=== PATIENT | female | born 1955 | race Caucasian/White ===

== ENCOUNTER 2016-03-21 14:20 | Emergency (ER) | payer MEDICARE, MEDICAID ==
[~2016-03-21] VITALS: Ht 157.5 cm; Wt 49.9 kg
[~2016-03-21 14:20] MED LIST: ADVAIR 250/5028 PUFF IN; ALBUTEROL-200 PUFFS/ IH; ALPRAZOLAM0.5 MG PO; ASPIRIN 325MG325 MG PO; ATIVAN1 MG PO; AUGMENTIN1 TA2 PO; BACTRIM DS 8001 TA1 PO; BACTRIM DS 8001 TAB PO; BAYER ASPIRIN C81 MG PO; BUSPIRONE 5MG TA5 MG PO; CEPHALEXIN500 MG PO; CLONAZEPAM 1MG T1 MG PO; COMBIVENT RESPI1 SPR IH; COMBIVENT1 AR1 IH; DALIRESP500 MCG PO; DARVOCET-N 1001 EACH PO; DEPAKOTE 250MG250 MG PO; DEXAMETHASONE 4M4 MG PO; DIFLUCAN 100MG100 MG PO; DOXYCYCLINE MO100 MG PO; DUONEB 3 MG/3 ML3 ML IH; FERROUS SULFAT325 M2 PO; FLEXERIL10 M1 PO; FLEXERIL10 MG PO; FOLIC ACID 1MG T1 MG PO; GABAPENTIN300 MG PO; HYDROCODONE 7.51 TAB PO; HYDROCODONE-APA1 TA1 PO; HYDROCODONE/ACE1 TA5 PO; HYDROCODONE1 TABLET PO; IBUPROFEN800 MG PO; KEFLEX 500MG.500 MG PO; KEPPRA 500 MG500 MG PO; KLONOPIN1 M2 PO; LASIX 40MG. TAB40 MG PO; LEVAQUIN500 MG PO; LEVOFLOXACIN 5500 MG PO; LIPITOR20 MG PO; LIPITOR40 MG PO; LISINOPRIL10 MG PO; LORTAB 5/500 501 TAB PO; LORTAB 7.5/3251 TAB PO; MEDROL 4MG. DOSE4 MG PO; MUCINEX FAST-M177 M3 PO; MUPIROCIN21 TP; NEURONTIN 100100 MG PO; NICODERM C21 MG/24 H TD; NICOTINE PATCH;21 MG TD; OMEPRAZOLE MAGN20 MG PO; ONDANSETRON HYDR8 M1 PO; ONDANSETRON8 M1 PO; POTASSIUM CHLO20 ME2 PO; PREDNISONE 20MG20 MG PO; PREDNISONE50 MG PO; PRILOSEC40 MG PO; PROAIR HFA0.09 MG/AC IH; PROVENTIL0.09 MG/A1 IH; PROVENTIL0.09 MG/AC IH; ROBITUSSIN DM 105 ML PO; SKELAXIN 800MG800 MG PO; SPIRIVA HA1 PUFF/INH IH; SUBOXONE 8 MG-21 FIL SL; SYMBICORT1 AE1 IH; TESSALON PERLE100 MG PO; TRAMADOL 50MG T50 M1 PO; TRAMADOL 50MG T50 MG PO; TRAZODONE 50MG50 MG PO; TRIMETHOPRIM W/1 TAB PO; ULTRAM 50 MG TA50 MG PO; VALPROIC ACID250 MG PO; VIBRAMYCIN HYC100 MG PO; VICODIN 5/500 T1 TAB PO; VICODIN 7.5/501 EACH PO; VOLTAREN75 MG PO; ZANTAC 150150 MG PO; ZIPRASIDONE HCL20 MG PO; ZITHROMAX Z PA250 MG PO
[2016-03-21] MEDS ORDERED: POTASSIUM CHLO20 ME2 PO (14:43)
[2016-03-21] MEDS ORDERED: SYMBICORT1 AE1 IH (14:44)
[2016-03-21] MEDS ORDERED: IPRATROPIUM 2.2.5 ML INH (14:45)
[2016-03-21] MEDS ORDERED: GABAPENTIN800 MG PO (14:45)
[2016-03-21] MEDS ORDERED: BIOTIN1 MG PO (14:46)
[2016-03-21] MEDS ORDERED: COD LIVER OIL1 CAP PO (14:46)
--- NOTE | 2016-03-21 14:57 | Urgent Treatment Center Report ---
History of Present Issue Date/Time Seen by Provider 03/21/16 5749 Visit Reason Pt arrived:Walked Presenting Problem:PT REPORTS CHEST CONGESTION AND FEELING MORE SOA THAN NORMAL. STATES SPUTUM IS DARKER THAN IT USUALLY IS. STATES COUGH Location if Accident: Onset of symptoms date/time:03/19/16/ or onset unknown for:MEDICAL HX UNKNOWN Have you (or family members/close friends) recently traveled outside the [place]? N If Yes, where/when: Have you had exposure to infectious disease within the past month? TB? Other? Specify: c/o "I think I have pneumonia". Increasing productive cough, darker sputum, chest congestion and SOA starting 2 days ago. Fractured right "middle" rib 2-3 weeks ago coughing. Still painful at times. Finished narcotic this morning. Hoarse but reports "I am still recovering from the test where they cleaned out my carotid. that is not related to this." Hx of lung CA 3-4 years ago "I am not sure when or exactly where". Treated w/ "focused radiation" only. Denies lobectomy or chemo. Also reports hx of COPD. Always has a productive cough and mild SOA. Still smoking but down from 2ppd to 1/2ppd. Had two remaining steroids at home from a previous illness. Took those. Hasn't taken or tried anything other than her COPD medications and inhalers. Not sure what they are. Reporting "that one" seems to help these symptoms. Gave list of meds to triage nurse. Denies fever, bodyaches, chills. Source patient Exam Limitations no limitations ALLERGIES Coded Allergies: No Known Allergies (12/29/15) Home Medications Active Scripts HYDROCODONE 5MG/APAP 325MG (Hydrocodon-Acetaminophen 5-325) 1 TAB PO Q4HP PRN pain #20 TAB Prov: 03/04/16 Reported Medications Ferrous Sulfate (Ferrous Sulfate 325MG) 325 MG PO BID OMEPRAZOLE MAGNESIUM (Omeprazole Magnesium) 20 MG PO DAILY Atorvastatin Calcium (Atorvastatin) 20 MG PO DAILY ALBUTEROL/IPRATROPIUM (Combivent Respimat Inhal [place]) 1 PUFF IH BID #4 POTASSIUM CHL (Potassium Chloride) 20 MEQ PO DAILY BUDESONIDE/FORMOTEROL FUMARATE (Symbicort 160-4.5 Mcg Inhaler) 1 PUFF IH BID Ipratropium [place] (Ipratropium 0.5MG Neb Soln) 0.5 MG INH PRN PRN COPD Gabapentin (Gabapentin 800MG) 800 MG PO Q8 #120 Cod Liver Oil 1 CAP PO DAILY Biotin 1 MG PO DAILY History Medical History General CAD? No Angina: No [place]: No Hypertension? No Hyperlipidemia? No CHF? No DVT? No PE? No COPD? Yes Asthma? Yes Anemia? Yes GERD? No Gastric ulcers? No GI Bleed? No Hernia? No Thyroid Problems? No Hypothyroidism? No CVA? Yes Seizures? Yes Diabetes? No Insulin Dependent: No Insulin Pump: No Home FSBS? No Renal Insuffiency? No UTI? Yes Stones? No BPH? No GB Disease: No Nephritic Syndrome? No Asplenia? No Hepatitis? No Sickle Cell Disease? No Arthritis? No Migraines? No Cataracts? No Glaucoma? No MRSA? No HIV? No TB? No Anxiety? No Depression? No Cancer? Yes Site: RIGHT LUNG More? No Immunization HX DT/Tetanus Unknown Flu REFUSES Pneumonia Unknown Surgical Hx Previous Surgery?Y HYSTERECTOMY LUNG BIOPSY Family History Family HX Diabetes No CAD No Hypertension No Hyperlipidemia No Cancer No TB No Social History Smoking Hx Smoker: Current Every Day Smoker Tobacco: Yes Type Cigarettes Packs/day 1 1/2 - 2 Packs Alcohol Alcohol: No Review of Systems All Other Systems Reviewed and Negative Constitutional see HPI Eyes denies no symptoms reported ENT nose discharge (scant, clear). denies: ear pain, nose congestion, throat pain. Respiratory see HPI, denies stridor, denies wheezing Cardiovascular chest pain (right flank, no new, rib fx) Gastrointestinal denies no symptoms reported Psychiatric/Neurological denies no symptoms reported Physical Exam Vital Signs Vital Signs Date Time Temp Pulse Resp B/P Pulse O2 O2 Flow FiO2 Ox Delivery Rate 03/21 1441 97.6 87 20 128/82 95 03/21 1424 97.6 87 20 128/82 95 General Appearance no apparent distress, In conversation, mild SOA immediately noticed. Hoarse voice Ear, Nose, Throat normal ENT inspection Neck non-tender, supple Respiratory Status No: respiratory distress, non productive cough. Lung Sounds anterior: lungs clear. posterior: lungs clear. bilateral: lungs clear. Cardiovascular regular rate/rhythm, no murmur Neurologic alert Skin intact, normal color, warm/dry Lymphatic no adenopathy (cervical) Medical Decision Making LABS/Meds/Orders Pt receiving controlled substance in ED? No Results/Orders Orders Procedure Date/time Status CHEST(2 VIEWS-NOT PORTABLE) 03/21 1457 Active XRAY/CT/US XRAY/CT/US XRAY chest XR interpretation by discussed w/radiologist (read report) Xray Results no infiltrates, unchanged, chronic finding Departure Departure Time of Disposition 1527 Disposition DC Home or Self Care(routine) Clinical Impression Primary Impression: COPD exacerbation Condition STABLE Referrals NO REFERRAL PCP immediately for new or worsening symptoms or no noticeable improvement over the next 48 hours Patient Instructions DI for Chronic Obstructive Pulmonary Disease Additional Instructions Increase fluids Mucinex prescription or if too expensive, 400mg tablets OTC (generic) and take 2 tabs 3x/day Start antibx and steroid today Use nebs/inhalers. enc use every 4-6 hours today and tomorrow then as needed for SOA, wheezing, chest tightness smoking cessation STRONGLY encouraged Discharge Counseling Counseled pt/family regarding diagnosis, test results, medications/RX, home care, follow up needs Prescriptions Current Visit Scripts Azithromycin (Zithromycin (Z-ARUN) 250MG Tab) 250 MG PO DAILY #6 TAB TAKE TWO (2) TABLETS ON DAY 1, THEN ONE (1) TABLET DAY #2 THRU #5 Methylprednisolone (Medrol Dose Arun) 4 MG PO UD #1 ARUN TAKE DIRECTED ON PACKAGING Guaifenesin (Mucinex) 1,200 MG PO BID #20 TAB if too expensive, show pt 400mg tabs (2 tabs TID) at 4620
--- NOTE | 2016-03-21 15:17 | RADIOLOGY REPORT PS360 ---
CHEST(2 VIEWS-NOT PORTABLE) HISTORY: fx right rib 2-3 weeks ago, now cough, SOA ORDERING PHYSICIAN: RICK MCCULLOUGH APRN PATIENT AGE: 60 years COMPARISON: 02/13/2016 FINDINGS: The cardiomediastinal silhouette and pulmonary vascularity are within normal limits. Fibrotic changes once again noted in the right midlung as previously described with mild prominence of the right hilum. Previously noted rib fractures are not readily apparent on the radiograph of the chest. There is some mild pleural thickening in the right midlung laterally. No evidence of pneumothorax. The left lung is clear. There is mild pectus excavatum deformity. IMPRESSION: 1. Mild pleural thickening right midlung laterally. No evidence of pneumothorax. 2. No change right midlung atelectasis or fibrosis with mild prominence of the right hilum.
[2016-03-21] MEDS ORDERED: ZITHROMAX Z PA250 MG PO (15:31)
[2016-03-21] MEDS ORDERED: MUCINEX1200 MG PO (15:32)
[2016-03-21] MEDS ORDERED: MEDROL 4MG. DOSE4 MG PO (15:32)
[2016-03-21 15:40] VITALS: BP 128/82
== END 2016-03-21 15:41 | disposition home or self-care (01) ==
LOC: UTC 14:20 → ER 14:20 → UTC 14:35 → ER 14:35 → UTC 15:41
DX: J44.1 Chronic obstructive pulmonary disease with (acute) exacerbation (principal); Z72.0 Tobacco use

== ENCOUNTER 2016-04-16 11:17 | Emergency (ER) | payer MEDICARE, MEDICAID ==
[~2016-04-16] VITALS: Ht 157.5 cm; Wt 54.4 kg
[~2016-04-16 11:17] MED LIST changes: +BIOTIN1 MG PO; +COD LIVER OIL1 CAP PO; +GABAPENTIN800 MG PO; +IPRATROPIUM 2.2.5 ML INH; +MUCINEX1200 MG PO
--- NOTE | 2016-04-16 11:29 | Emergency Room Report ---
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 N Clinical Suspician of Infection? N Mental Status: 1 - Regular (Normal Baseline) Sepsis Risk:Low Sepsis Risk Have you (or family members/close friends) recently traveled outside the [place]? N If Yes, where/when: Have you had exposure to infectious disease within the past month? TB? Other? Specify: Comment The patient requests x-rays of her RIGHT ribs. She says she broke ribs on the RIGHT side a few weeks ago and they have begun hurting worse again a week ago. She says she has been picking up children and other various physical activities. She has pain with a deep breath. She was initially seen here for her fractured ribs, but has had no follow-up. She denies any other new symptoms. ALLERGIES Coded Allergies: No Known Allergies (04/16/16) Home Medications Active Scripts HYDROCODONE 5MG/APAP 325MG (Hydrocodon-Acetaminophen 5-325) 1 TAB PO Q4HP PRN pain #20 TAB Prov: 03/04/16 Azithromycin (Zithromycin (Z-ARUN) 250MG Tab) 250 MG PO DAILY #6 TAB Prov: 03/21/16 Methylprednisolone (Medrol Dose Arun) 4 MG PO UD #1 ARNU Prov: 03/21/16 Guaifenesin (Mucinex) 1,200 MG PO BID #20 TAB Prov: 03/21/16 Reported Medications Ferrous Sulfate (Ferrous Sulfate 325MG) 325 MG PO BID OMEPRAZOLE MAGNESIUM (Omeprazole Magnesium) 20 MG PO DAILY Atorvastatin Calcium (Atorvastatin) 20 MG PO DAILY ALBUTEROL/IPRATROPIUM (Combivent Respimat Inhal [place]) 1 PUFF IH BID #4 POTASSIUM CHL (Potassium Chloride) 20 MEQ PO DAILY BUDESONIDE/FORMOTEROL FUMARATE (Symbicort 160-4.5 Mcg Inhaler) 1 PUFF IH BID Ipratropium [place] (Ipratropium 0.5MG Neb Soln) 0.5 MG INH PRN PRN COPD Gabapentin (Gabapentin 800MG) 800 MG PO Q8 #120 Cod Liver Oil 1 CAP PO DAILY Biotin 1 MG PO DAILY History Medical History General CAD? No Angina: No [place]: No Hypertension? No Hyperlipidemia? No CHF? No DVT? No PE? No COPD? Yes Asthma? Yes Anemia? Yes GERD? No Gastric ulcers? No GI Bleed? No Hernia? No Thyroid Problems? No Hypothyroidism? No CVA? Yes Seizures? Yes Diabetes? No Insulin Dependent: No Insulin Pump: No Home FSBS? No Renal Insuffiency? No End Stage Renal Disease? No UTI? Yes Stones? No BPH? No GB Disease: No Nephritic Syndrome? No Asplenia? No Hepatitis? No Sickle Cell Disease? No Arthritis? No Migraines? No Cataracts? No Glaucoma? No MRSA? No HIV? No TB? No Anxiety? No Depression? No Cancer? Yes Site: RIGHT LUNG More? No Immunization Hx Ped.Immunizations UTD Yes DT/Tetanus Unknown Flu REFUSES Pneumonia Unknown Surgical Hx Previous Surgery?Y HYSTERECTOMY LUNG BIOPSY [facility] RN Hx LMP N/A Family History Family Hx Diabetes No CAD No Hypertension No Hyperlipidemia No Cancer No TB No Social History Smoking Hx Smoker: Current Every Day Smoker Tobacco: Yes Type Cigarettes Packs/day 1 1/2 - 2 Packs Alcohol Alcohol: No Additionial History Additional History The patient was seen here March 04 and had nondisplaced fractures of her RIGHT fifth and sixth ribs. She has also been seen since then on March 21 for a respiratory infection, seen in the urgent treatment center, and had a chest x- ray at that time as well, which did not visualize the previously noted rib fractures. Review of Systems All Other Systems Reviewed and Negative Respiratory cough, denies shortness of breath Cardiovascular chest pain (right ribs) Gastrointestinal denies abdominal pain, denies vomiting Physical Exam Vital Signs Vital Signs Date Time Temp Pulse Resp B/P Pulse O2 O2 Flow FiO2 Ox Delivery Rate 04/16 1122 97.4 92 18 134/75 96 General Appearance thin Eye Exam - bilateral eye normal exam, bilateral eye PERRL, bilateral eye EOMI Ear, Nose, Throat hearing grossly normal, normal ENT inspection Neck normal inspection, non-tender, supple, full range of motion Respiratory Status Yes: trachea midline, chest symmetrical, non productive cough. No: respiratory distress. Lung Sounds bilateral: normal breath sounds, lungs clear. 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 No bony crepitus, subcutaneous air, or instability palpated. Medical Decision Making LABS/Meds/Orders Pt receiving controlled substance in ED? Yes Zeb was queried for this patient? Yes Reference #: [id number] Comment result pending - "manual process" Results/Orders Orders Procedure Date/time Status [id number] VIEWS 04/16 1125 Active CHEST(2 VIEWS-NOT PORTABLE) 04/16 1125 Active XRAY/CT/US XRAY/CT/US XRAY chest, rib Comment X-ray interpreted by Josafat Aguilar M.D.: Fractured RIGHT fifth and sixth ribs, no new fracture seen. No pneumothorax. Chronic scarring. Departure Departure Disposition DC Home or Self Care(routine) Clinical Impression Primary Impression: Right rib fracture Qualifiers: Encounter type: initial encounter Rib fracture type: multiple ribs Fracture type: closed Qualified Code: S22.41XA - Multiple fractures of ribs, right side, initial encounter for closed fracture Condition STABLE Patient Instructions DI for Rib Fracture Additional Instructions Additional instructions for RIB FRACTURES: See your physician as soon as possible for further evaluation. Hold a pillow against your injured ribs to help with pain when coughing or sneezing. Sleep with several pillows to help support you in the most comfortable position. Take deep breaths frequently. Return immediately if shortness of breath, intolerable pain, coughing of blood, abdominal pain or vomiting. Additional instructions for CONTROLLED SUBSTANCES: You have been prescribed a medication that is a controlled substance. Controlled substances include pain medications known as opiates and sedative nerve medications known as benzodiazepines. Some common opiates include: Codeine (such as Tylenol #3) Hydrocodone (Vicodin, Lortab, Lorcet, [place]) Oxycodone (Percocet, Percodan, Oxycodone, Oxy IR) Some common benzodiazepines include: Diazepam (Valium) Lorazepam (Ativan) Alprazolam (Xanax) Clonazepam (Klonopin) Oxazepam (Serax) All of these controlled substances are highly addictive and frequently abused. Misuse can and frequently does lead to addiction as well as overdose and . Short term supplies, 3 days or less, are prescribed because of the highly addictive nature of the medication. Any of the controlled substance medication NOT taken should be disposed of properly and NOT SAVED. The recommended method of disposing of unused medications is: Place the medicines in a sealable plastic bag. If the medicine is a solid, crush it or add water to dissolve it. Add something undesirable (cat litter, coffee grounds, etc.) Dispose of sealed bag in household trash Do not flush or pour unused medicines down a sink or drain. Also, because of the addictive nature and frequent abuse, these medications are sometimes stolen. These medications should be kept in a safe place where they cannot be stolen. Do not keep them in your car or purse. Lost or stolen prescriptions for controlled substances WILL NOT BE REFILLED in this emergency department, regardless of whether a police report was filed. Prescriptions Current Visit Scripts HYDROCODONE/ACETAMINOPHEN ([place] 5-325 Tablet) 1 TAB PO Q6HP PRN pain #12 TAB ED Critical Care Critical Care No at 3630
--- NOTE | 2016-04-16 11:29 | Emergency Room Report ---
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 N Clinical Suspician of Infection? N Mental Status: 1 - Regular (Normal Baseline) Sepsis Risk:Low Sepsis Risk Have you (or family members/close friends) recently traveled outside the [place]? N If Yes, where/when: Have you had exposure to infectious disease within the past month? TB? Other? Specify: Comment The patient requests x-rays of her RIGHT ribs. She says she broke ribs on the RIGHT side a few weeks ago and they have begun hurting worse again a week ago. She says she has been picking up children and other various physical activities. She has pain with a deep breath. She was initially seen here for her fractured ribs, but has had no follow-up. She denies any other new symptoms. ALLERGIES Coded Allergies: No Known Allergies (04/16/16) Home Medications Active Scripts HYDROCODONE 5MG/APAP 325MG (Hydrocodon-Acetaminophen 5-325) 1 TAB PO Q4HP PRN pain #20 TAB Prov: 03/04/16 Azithromycin (Zithromycin (Z-ARUN) 250MG Tab) 250 MG PO DAILY #6 TAB Prov: 03/21/16 Methylprednisolone (Medrol Dose Arun) 4 MG PO UD #1 ARUN Prov: 03/21/16 Guaifenesin (Mucinex) 1,200 MG PO BID #20 TAB Prov: 03/21/16 Reported Medications Ferrous Sulfate (Ferrous Sulfate 325MG) 325 MG PO BID OMEPRAZOLE MAGNESIUM (Omeprazole Magnesium) 20 MG PO DAILY Atorvastatin Calcium (Atorvastatin) 20 MG PO DAILY ALBUTEROL/IPRATROPIUM (Combivent Respimat Inhal [place]) 1 PUFF IH BID #4 POTASSIUM CHL (Potassium Chloride) 20 MEQ PO DAILY BUDESONIDE/FORMOTEROL FUMARATE (Symbicort 160-4.5 Mcg Inhaler) 1 PUFF IH BID Ipratropium [place] (Ipratropium 0.5MG Neb Soln) 0.5 MG INH PRN PRN COPD Gabapentin (Gabapentin 800MG) 800 MG PO Q8 #120 Cod Liver Oil 1 CAP PO DAILY Biotin 1 MG PO DAILY History Medical History General CAD? No Angina: No [place]: No Hypertension? No Hyperlipidemia? No CHF? No DVT? No PE? No COPD? Yes Asthma? Yes Anemia? Yes GERD? No Gastric ulcers? No GI Bleed? No Hernia? No Thyroid Problems? No Hypothyroidism? No CVA? Yes Seizures? Yes Diabetes? No Insulin Dependent: No Insulin Pump: No Home FSBS? No Renal Insuffiency? No End Stage Renal Disease? No UTI? Yes Stones? No BPH? No GB Disease: No Nephritic Syndrome? No Asplenia? No Hepatitis? No Sickle Cell Disease? No Arthritis? No Migraines? No Cataracts? No Glaucoma? No MRSA? No HIV? No TB? No Anxiety? No Depression? No Cancer? Yes Site: RIGHT LUNG More? 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 She has also been seen since then on March 21 for a respiratory infection, seen in the urgent treatment center, and had a chest x- ray at that time as well, which did not visualize the previously noted rib fractures. Review of Systems All Other Systems Reviewed and Negative Respiratory cough, denies shortness of breath Cardiovascular chest pain (right ribs) Gastrointestinal denies abdominal pain, denies vomiting Physical Exam Vital Signs Vital Signs Date Time Temp Pulse Resp B/P Pulse O2 O2 Flow FiO2 Ox Delivery Rate 04/16 1122 97.4 92 18 134/75 96 General Appearance thin Eye Exam - bilateral eye normal exam, bilateral eye PERRL, bilateral eye EOMI Ear, Nose, Throat hearing grossly normal, normal ENT inspection Neck normal inspection, non-tender, supple, full range of motion Respiratory Status Yes: trachea midline, chest symmetrical, non productive cough. No: respiratory distress. Lung Sounds bilateral: normal breath sounds, lungs clear. 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 No bony crepitus, subcutaneous air, or instability palpated. Medical Decision Making LABS/Meds/Orders Pt receiving controlled substance in ED? Yes Zeb was queried for this patient? Yes Reference #: [id number] Comment result pending - "manual process" Results/Orders Orders Procedure Date/time Status [id number] VIEWS 04/16 1125 Active CHEST(2 VIEWS-NOT PORTABLE) 04/16 1125 Active XRAY/CT/US XRAY/CT/US XRAY chest, rib Comment X-ray interpreted by Josafat Aguilar M.D.: Fractured RIGHT fifth and sixth ribs, no new fracture seen. No pneumothorax. Chronic scarring. Departure Departure Disposition DC Home or Self Care(routine) Clinical Impression Primary Impression: Right rib fracture Qualifiers: Encounter type: initial encounter Rib fracture type: multiple ribs Fracture type: closed Qualified Code: S22.41XA - Multiple fractures of ribs, right side, initial encounter for closed fracture Condition STABLE Patient Instructions DI for Rib Fracture Additional Instructions Additional instructions for RIB FRACTURES: See your physician as soon as possible for further evaluation. Hold a pillow against your injured ribs to help with pain when coughing or sneezing. Sleep with several pillows to help support you in the most comfortable position. Take deep breaths frequently. Return immediately if shortness of breath, intolerable pain, coughing of blood, abdominal pain or vomiting. Additional instructions for CONTROLLED SUBSTANCES: You have been prescribed a medication that is a controlled substance. Controlled substances include pain medications known as opiates and sedative nerve medications known as benzodiazepines. Some common opiates include: Codeine (such as Tylenol #3) Hydrocodone (Vicodin, Lortab, Lorcet, [place]) Oxycodone (Percocet, Percodan, Oxycodone, Oxy IR) Some common benzodiazepines include: Diazepam (Valium) Lorazepam (Ativan) Alprazolam (Xanax) Clonazepam (Klonopin) Oxazepam (Serax) All of these controlled substances are highly addictive and frequently abused. Misuse can and frequently does lead to addiction as well as overdose and . Short term supplies, 3 days or less, are prescribed because of the highly addictive nature of the medication. Any of the controlled substance medication NOT taken should be disposed of properly and NOT SAVED. The recommended method of disposing of unused medications is: Place the medicines in a sealable plastic bag. If the medicine is a solid, crush it or add water to dissolve it. Add something undesirable (cat litter, coffee grounds, etc.) Dispose of sealed bag in household trash Do not flush or pour unused medicines down a sink or drain. Also, because of the addictive nature and frequent abuse, these medications are sometimes stolen. These medications should be kept in a safe place where they cannot be stolen. Do not keep them in your car or purse. Lost or stolen prescriptions for controlled substances WILL NOT BE REFILLED in this emergency department, regardless of whether a police report was filed. Prescriptions Current Visit Scripts HYDROCODONE/ACETAMINOPHEN ([place] 5-325 Tablet) 1 TAB PO Q6HP PRN pain #12 TAB ED Critical Care Critical Care No at 8361
[2016-04-16] MEDS ORDERED: NORCO 325 MG-51 TAB PO (12:08)
[2016-04-16 12:22] VITALS: BP 128/70
--- NOTE | 2016-04-17 12:39 | RADIOLOGY REPORT PS360 ---
[id number] VIEWS ORDERING PHYSICIAN : Josafat Aguilar MD PATIENT AGE: 60 years GENDER: Female INDICATION: RIGHT RIB PAIN right chest pain TECHNIQUE: Oblique views right ribs along with AP above and below diaphragm chest COMPARISON: Rib series March 04, 2016 and 2 view chest 03/21/2016. FINDINGS COMPARISON is made to the 03/04/2016 which first of the rib fractures. The fifth and sixth rib fractures again noted. Mild just over 2 mm offset and displacement as seen on the frontal projection at fifth rib with less offset at the sixth rib. There is a underlying pleural thickening and scarring at this site with some stranding scarring and atelectasis extending from this area towards the right halley this is seen at the right midlung with similar appearance noted on 2016 exam. Minimal healing evident at these rib fractures as of yet but I do not see any associated destructive lesion or other findings. The left lung remains clear. Mild cardiomegaly noted. Calcified aortic knob. Minor dextrocurvature at the upper T-spine and a stable. IMPRESSION: ] Rib 5 & 6 fracture again seen- as initially noted on 03/04/2016 rib series. little if any healing evident as of yet in the interval. Perhaps Subtle progressive pleural thickening beneath these rib fractures. Linear scarring & atelectasis right midlung persistent reflecting chronic lung change, (which pre-dates the rib fractures) Cardiomegaly.
--- NOTE | 2016-04-17 15:15 | RADIOLOGY REPORT PS360 ---
CHEST(2 VIEWS-NOT PORTABLE) ORDERING PHYSICIAN : Josafat Aguilar MD PATIENT AGE: 60 years GENDER: Female INDICATION: RIGHT RIB PAIN TECHNIQUE: PA and lateral chest COMPARISON: 03/21/2016 CXR FINDINGS . There is slight progression of the pleural thickening beneath the previously noted lateral fifth and sixth rib fractures. Also perhaps very slight additional linear scarring and atelectasis right midlung seen today but leading to this area of minimal pleural thickening and pleural scarring. . The left lung is clear and unremarkable. The heart is normal size mediastinal structures unchanged. The slight pectus excavatum deformity accentuates the appearance as seen in aorta on the lateral view-unchanged. This patient's chest pain should progress rather than improved the may want to consider follow-up CT with contrast again further evaluate IMPRESSION The healing fifth and sixth rib fracture again noted on today's rib series . Subtle additional pleural thickening seen just beneath these healing fifth & sixth rib fractures along the lateral right chest. Linear fibrotic scarring & atelectasis at right midlung again seen today- perhaps slightly more pronounced
== END 2016-04-16 12:23 | disposition home or self-care (01) ==
LOC: ER 11:17
DX: S22.41XA Multiple fractures of ribs, right side, initial encounter for closed fracture (principal); Z72.0 Tobacco use; J44.9 Chronic obstructive pulmonary disease, unspecified

== ENCOUNTER 2016-10-18 19:12 | Emergency (ER) | payer MEDICARE, MEDICAID ==
[~2016-10-18] VITALS: Ht 157.5 cm; Wt 52.2 kg
[~2016-10-18 19:12] MED LIST changes: +GABAPENTIN300 M1 PO; +NORCO 325 MG-51 TAB PO
--- NOTE | 2016-10-18 19:43 | Emergency Room Report ---
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 N Clinical Suspician of Infection? N Mental Status: 2 - Mildly Altered Sepsis Risk:Possible Sepsis Risk Have you (or family members/close friends) recently traveled outside the [place]? N If Yes, where/when: Have you had exposure to infectious disease within the past month? N TB? Other? Specify: Comment The patient was here as a visitor with another patient in the emergency room and apparently had a loss of consciousness in the waiting room. She is having jerking movements which started at that time. She says that she has a prior history of seizures a couple of years ago, but is not on seizure medication. She denies any recent illness. Denies headache. Denies numbness or weakness. Denies alcohol or drug use. ALLERGIES Coded Allergies: cephalexin (From KEFLEX) (Mild, 10/12/16) Home Medications Active Scripts Guaifenesin (Mucinex) 1,200 MG PO BID #20 TAB Prov: 03/21/16 Reported Medications Gabapentin 300 MG PO BID #90 Ferrous Sulfate (Ferrous Sulfate 325MG) 325 MG PO BID OMEPRAZOLE MAGNESIUM (Omeprazole Magnesium) 20 MG PO DAILY Atorvastatin Calcium (Atorvastatin) 20 MG PO DAILY ALBUTEROL/IPRATROPIUM (Combivent Respimat Inhal [place]) 1 PUFF IH BID #4 POTASSIUM CHL (Potassium Chloride) 20 MEQ PO DAILY BUDESONIDE/FORMOTEROL FUMARATE (Symbicort 160-4.5 Mcg Inhaler) 1 PUFF IH BID Ipratropium [place] (Ipratropium 0.5MG Neb Soln) 0.5 MG INH PRN PRN COPD Biotin 1 MG PO DAILY (Jeff PALMA, Josafat) Source patient, RN notes reviewed, family, old records Exam Limitations no limitations Cardiac Chest Pain Chest pain indicative of cardiac No Timing/Duration this evening Severity moderate (Talisha PALMA,Mary Lou Verduzco) History Medical History General CAD? No Angina: No NC: No Hypertension? No Hyperlipidemia? No CHF? No DVT? No PE? No COPD? Yes Asthma? Yes Anemia? Yes GERD? No Gastric ulcers? No GI Bleed? No Hernia? No Thyroid Problems? No Hypothyroidism? No CVA? Yes Seizures? Yes Diabetes? No Insulin Dependent: No Insulin Pump: No Home FSBS? No Renal Insuffiency? No End Stage Renal Disease? No UTI? Yes Stones? No BPH? No GB Disease: No Nephritic Syndrome? No Asplenia? No Hepatitis? No Sickle Cell Disease? No Arthritis? No Migraines? No Cataracts? No Glaucoma? No MRSA? No HIV? No TB? No Anxiety? No Depression? No Cancer? Yes Site: RIGHT LUNG More? No Immunization Hx DT/Tetanus Unknown Flu [id number] Pneumonia Received In Past Surgical Hx Previous Surgery?Y HYSTERECTOMY LUNG [employer] Hx LMP N/A Family History Family Hx Diabetes No CAD No Hypertension No Hyperlipidemia No Cancer No TB No Social History Smoking Hx Smoker: Current Every Day Smoker Tobacco: Yes Type Cigarettes Packs/day 1 1/2 - 2 Packs Alcohol Alcohol: No (Josafat Aguilar MD) Social History Drugs none (Mary Lou Woodall MD) Review of Systems All Other Systems Reviewed and Negative Constitutional denies fever Respiratory denies cough, denies shortness of breath Cardiovascular denies chest pain Gastrointestinal denies abdominal pain, denies diarrhea, denies vomiting Psychiatric/Neurological denies headache, seizure (Josafat Aguilar MD) Skin denies rash (Mary Lou Woodall MD) Physical Exam Vital Signs Vital Signs Date Time Temp Pulse Resp B/P Pulse O2 O2 Flow FiO2 Ox Delivery Rate 10/18 1948 98.4 95 14 92 2 10/18 1944 14 10/18 1913 98.4 95 20 90/44 92 General Appearance laying in bed, arms raised in front of her having intermittent jerking movements of her arms, face, and legs. She is able to converse during this, but has lapses in her ability to speak for several seconds at a time. Eyes are deviated up into the LEFT but she can change her gaze. Eye Exam - bilateral eye normal exam, bilateral eye PERRL, bilateral eye EOMI Ear, Nose, Throat hearing grossly normal, normal ENT inspection Neck normal inspection, non-tender, supple, full range of motion Respiratory Status Yes: trachea midline, chest symmetrical. No: respiratory distress. Lung Sounds bilateral: normal breath sounds, lungs clear. Cardiovascular normal exam, regular rate/rhythm, no peripheral edema, no gallop, no JVD, no murmur, no rub, normal peripheral pulses Peripheral Pulses Pulses normal Yes Gastrointestinal normal bowel sounds, normal exam, non tender, soft, no organomegaly Extremities normal inspection Neurologic alert, oriented x 3, sensory intact, abnormal motor movements as noted involving face and extremities Mental status normal mood/affect Skin intact, normal color, warm/dry (Josafat Aguilar MD) - WBC >12,000 or <4,000 or 10% bands? 2 or more SIRS Criteria Met? B/P:90/44 MAP:59 Creatinine >2.0? UA output<0.5ml/kg/hr for 2 hrs? Platelet count >100,000? Lactate >2.0mmol/1? INR >1.2 or PTT > than 60 sec? Evidence of Organ Dysfunction? Provider documented clinical suspician of infection? N Sepsis Criteria Count: 2 Sepsis Risk: Possible Sepsis Risk Strength 4 Upper Ext (L), 4 Upper Ext (R), 4 Lower Ext (L), 4 Lower Ext (R) Glascow Coma Scale Glascow Coma Scale Response Value EYE response: 4 Spontaneously 4 MOTOR response: 6 OBEYS 6 VERBAL response: 5 Oriented & Converses 5 Total 15 (Talisha PALMA,Mary Lou Verduzco) Medical Decision Making LABS/Meds/Orders Pt receiving controlled substance in ED? Yes Zeb was queried for this patient? Yes Comment [id number] 18 rxs. last rx 60 buprenorphine/naloxone on 09/23/16. Results/Orders Laboratory Tests 10/18/162009: Opiates Screen NEGATIVE, Urine Methadone Screen NEGATIVE, Barbiturates NEGATIVE, Phencyclidine Screen NEGATIVE, Amphetamines Screen NEGATIVE, Benzodiazepines Screen NEGATIVE, Cocaine Screen NEGATIVE, Marijuana (THC) Screen NEGATIVE 10/18/161948: Sodium 137, Potassium 4.1, Chloride 97 L, Carbon Dioxide 37 H, BUN 8, Creatinine 0.6, Estimated Creat Clear 83, Estimated GFR (MDRD) 102, Glucose 101, Calcium 9.3, Total Bilirubin 0.3, AST 18, ALT 23, Alkaline Phosphatase 195 H, Total Protein 7.5, Albumin 3.5, Globulin 4.0 H, Albumin/Globulin Ratio 0.9 L, Alcohols 0 10/18/161942: POC Glucose 104 10/18/161914: WBC 9.0, RBC 4.75, Hgb 14.6, Hct 44.0, MCV 92.6, RDW 14.2, Plt Count 248, MPV 8.0, Gran % 48.8, Gran # 4.4, Lymphocytes % 34.4, Monocytes % 12.5 H, Eosinophils % 3.2, Basophils % 1.1, Lymphocytes # 3.1, Monocytes # 1.1 H, Eosinophils # 0.3, Basophils # 0.1, PUBS MCHC 33.2, MCH 30.8 Current Medication Orders Sig/Cirilo Start time Last Medication Dose Route Stop Time Status Admin Lorazepam 1 MG ONCE ONE 10/18 1944 DC 10/18 IV 10/18 Sodium Chloride 10 ML PRN PRN 10/18 1944 AC IV 10/19 1937 Lorazepam 0 .STK-MED ONE 10/18 1936 DC .ROUTE Orders Procedure Date/time Status DIET-NOTHING BY MOUTH 10/19 B Active FINGERSTICK BLOOD SUGAR 10/[address] HEAD W/O CONTRAST 10/[address] HEAD REQ 10/18 1938 Complete IV SALINE LOCK 10/18 1938 Active FSBS REQUEST BY CARE AREA 10/18 1938 Active DRUG ABUSE SCREEN (TRIAGE) 10/18 1938 Complete CBC WITH AUTO DIFF 10/18 1938 Complete CHEM 12 PROFILE 10/18 1938 Complete ALCOHOL 10/18 1938 Complete Progress - 8:00 PM: At shift change, I have discussed the patient with Dr. Woodall, who will assume care of the patient at this time. I have discussed all clinical information including history, physical and diagnostic study results. Preliminary diagnoses based on information available at this point have been recorded by me. Controlled substance administration and critical care statement are also preliminary, as of the time of handoff. (Jeff PALMA, Josafat) LABS/Meds/Orders Pt receiving controlled substance in ED? No XRAY/CT/US XRAY/CT/US CT head CT interpretation by discussed w/radiologist Time results known: 2123 CT Results normal/NAD (Talisha PALMA,Mary Lou Verduzco) Departure Departure Disposition Still a Patient Clinical Impression Primary Impression: Seizure-like activity Condition STABLE Referrals Siddhartha Woodall MD (Family) ED Critical Care Critical Care No (Josafat Aguilar MD) Departure Time of Disposition 2123 Patient Instructions DI for Syncope in Adults (Fainting) Additional Instructions see pcp for follow up Discharge Counseling Counseled pt/family regarding diagnosis, test results, follow up needs (Mary Lou Woodall MD) at 2006 at 2126
[2016-10-18 19:47] LABS: HEMOGLOBIN 14.6 g/dL (12.2-16.2); LYMPH # 3.1 K/mm3 (0.7-4.5); LYMPH % 34.4 % (10-50.0)
[2016-10-18 20:28] LABS: AMPHETAMINES/METAMPHETAMINES NEGATIVE ng/mL (<1000)
[2016-10-18 21:36] VITALS: BP 144/79
--- NOTE | 2016-10-19 07:26 | RADIOLOGY REPORT PS360 ---
CT HEAD W/O CONTRAST HISTORY: Seizure activity with fall and head injury/pain SEIZURE ORDERING PHYSICIAN: Mary Lou Woodall MD PATIENT AGE: 60 years COMPARISON: 10/12/2016 TECHNIQUE: Axial images obtained without contrast. Brain and bone windows reviewed. FINDINGS: No midline shift, mass effect, intracranial hemorrhage, hydrocephalus, or extra-axial fluid collection is evident. Encephalomalacia change once again noted in the left parietal lobe unchanged. The calvarium has an unremarkable appearance. No mastoid effusion. The visualized paranasal sinuses are unremarkable. IMPRESSION: 1. No change with no acute finding. 2. Encephalomalacia in the left parietal lobe.
== END 2016-10-18 21:37 | disposition still patient (30) ==
LOC: ER 19:12
PROVIDERS: Emergency Medicine
DX: R56.9 Unspecified convulsions (principal); F17.210 Nicotine dependence, cigarettes, uncomplicated; J44.9 Chronic obstructive pulmonary disease, unspecified; Z79.51 Long term (current) use of inhaled steroids; Z79.899 Other long term (current) drug therapy

== ENCOUNTER → 2016-11-07 | Outpatient (CLI) | payer MEDICARE, MEDICAID ==
--- NOTE | 2016-11-08 11:25 | RADIOLOGY REPORT PS360 ---
CT CHEST W/O CONTRAST COMPARISON: CT scan of chest with IV contrast 08/07/2016 HISTORY: Chest wall pain, patient has history of previous lung cancer with radiation therapy TECHNIQUE: Multiaxial scans obtained from thoracic inlet the hemidiaphragms and were performed without IV contrast. Sagittal coronal reformats were evaluated as well. FINDINGS: The lung whittington are well expanded. Again noted is a somewhat shaggy appearance to the right hilum with mild accentuation of the interstitial markings in the right perihilar region and right upper lobe likely resenting post radiation pneumonitis or early fibrosis. The lung parenchymal changes are at least slightly less prominent on the previous study in August. The precarinal nodes described previously are stable or may have decreased in size slightly. The remainder lung whitting[place] are clear. There is borderline cardio megaly with mild aortic tortuosity. There is arteriosclerotic calcification of the aortic arch. There has been interval resolution of the small right-sided pleural effusion seen on the previous exam. There are healing rib fractures right side as noted previously. There are no definite lytic or blastic lesions involving the bony thorax. There are mild multilevel degenerative changes of the thoracic spine. Impression: Overall slight improvement from the previous study probable post radiation changes involving the right hilum and right perihilar region and right upper lobe but the parenchymal changes are slightly less prominent in the previous study
== END ==
LOC: RAD 14:45
DX: R07.89 Other chest pain (principal)

== ENCOUNTER → 2016-11-13 | Outpatient (CLI) | payer MEDICARE, MEDICAID ==
--- NOTE | 2016-11-13 13:36 | CARDIOVASCULAR REPORT ---
"Cerebrovascular Exam Indications: 433.10 Occlusion/stenosis of carotid artery without cerebral infarction. IMPRESSIONS 1. The bilateral vertebral arteries are patent with normal antegrade flow. 2. Study suggests 20-49% stenosis involving the right internal carotid artery. 3. Study suggests 20-49% stenosis involving the left internal carotid artery. Disease regression from the study of 07-Oct-2015. L ECA done after last exam History: Stroke. Risk factors: Current tobacco use. Hypertension. Hyperlipidemia. Labs, prior tests, procedures, and surgery: Left endarterectomy. Labs, prior tests, procedures, and surgery: Left endarterectomy. Carotid duplex study. Complete study and Doppler flow study including spectral analysis, color and parish scale imaging. Height: Height: 157.5cm. Height: 62in. Weight: Weight: 52.2kg. Weight: 114.8lb. Body mass index: BMI: 21kg/m^2. Body surface area: BSA: 1.51m^2. Location: Vascular laboratory. Patient status: Outpatient. Tables: Arterial flow: + +--------+--------+ |Location |V sys |V ed | + +--------+--------+ |Right CCA - proximal|84.1cm/s|23.6cm/s| + +--------+--------+ |Right CCA - distal |75.4cm/s|19.6cm/s| + +--------+--------+ |Right ECA |99.8cm/s|--------| + +--------+--------+ |Right ICA - proximal|67.6cm/s|16.5cm/s| + +--------+--------+ |Right ICA - mid |83.3cm/s|35.4cm/s| + +--------+--------+ |Right ICA - distal |102cm/s |36.9cm/s| + +--------+--------+ |Right vertebral |38.5cm/s|--------| + +--------+--------+ |Left CCA - proximal |76.2cm/s|24.4cm/s| + +--------+--------+ |Left CCA - distal |69.1cm/s|23.6cm/s| + +--------+--------+ |Left ECA |379cm/s |--------| + +--------+--------+ |Left ICA - proximal |131cm/s |40.3cm/s| + +--------+--------+ |Left ICA - mid |149cm/s |50.1cm/s| + +--------+--------+ |Left ICA - distal |132cm/s |43.2cm/s| + +--------+--------+ |Left vertebral |64.6cm/s|--------| + +--------+--------+ Velocity ratios: + + + + + + | |Right, V sys|Right, V ed|Left, V sys|Left, V ed| + + + + + + |Max ICA/dist CCA|1.35 |1.88 |2.16 |2.12 | + + + + + + (Report amended ) Electronically signed by: Flynn Metzger [id number]"
== END ==
LOC: RT 11-03 13:00
DX: I63.312 Cerebral infarction due to thrombosis of left middle cerebral artery (principal); I65.23 Occlusion and stenosis of bilateral carotid arteries

== ENCOUNTER 2016-11-21 18:28 | Emergency (ER) | payer MEDICARE, MEDICAID ==
[~2016-11-21] VITALS: Ht 157.5 cm; Wt 49.9 kg
[2016-11-21 18:36] LABS: LYMPH # 0.6 K/mm3 (0.7-4.5); LYMPH % 1.9 % (10-50.0)
[2016-11-21 18:39] LABS: HEMOGLOBIN 16.4 g/dL (12.2-16.2)
[2016-11-21 18:50] LABS: BUN 14 mg/dL (7-18); GFR (ESTIMATED) 85 ML/MIN (59-)
--- OUTSIDE RECORDS SUMMARY | 2016-11-21 18:56 | External Medical Summary Rpt | CCD ---
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 E87.6 HYPOKALEMIA I63.8 OTHER CEREBRAL INFARCTION I63.9 CEREBRAL INFARCTION, UNSPECIFIED J18.9 PNEUMONIA, UNSPECIFIED ORGANISM J44.1 CHRONIC OBSTRUCTIVE PULMONARY DISEASE W (ACUTE) EXACERBATIO N J44.9 CHRONIC OBSTRUCTIVE PULMONARY DISEASE, UNSPECIFIED L03.116 CELLULITIS OF LEFT LOWER LIMB L03.90 CELLULITIS, UNSPECIFIED M54.17 RADICULOPAT HY, LUMBOSACRAL REGION R07.81 PLEURODYNIA R40.1 STUPOR R41.82 ALTERED MENTAL STATUS, UNSPECIFIED R55 SYNCOPE AND COLLAPSE R56.9 UNSPECIFIED CONVULSIONS S22.31XA FRACTURE OF ONE RIB, RIGHT SIDE, INIT FOR CLOS FX T50.901A POISONING BY UNSP DRUG/MEDS/B IOL SUBST, ACCIDENTAL, INIT Allergies, Adverse Reactions, Alerts Type Allergy to substance Adverse Reaction to Substance Substance Reaction Severity NO KNOWN ALLERGIES Unknown Unknown Medications Na ND Rx Da Fi Fi Am Da Di Ph RX Ph St me C No te ll ll ou ys ag ar # ys at rm s nt no ma ic us Or Da si cy ia de te s n re d IP 00 10 0 No RA 48 -3 T- 70 0- Lo AL 20 20 ng BU 10 13 er T 1 0. Ac 5- ti 3( ve 2. 5) MG /3 ML TX 00 10 0 No ED 05 -3 NI 40 0- Lo SO 01 20 ng NE 82 13 er 0 20 Ac ti MG ve TA BL ET BE 57 10 0 No NZ 66 -3 ON 40 0- Lo AT 13 20 ng AT 38 13 er E 8 10 Ac 0 ti MG ve CA PS UL E Le 00 10 0 No vo 90 -3 fl 46 0- Lo ox 25 20 ng ac 06 13 er in 1 Ac 50 ti 0M ve G Ta bl et VE 00 10 0 No NT 17 -3 OL 30 0- Lo IN 68 20 ng 22 13 er HF 4 A Ac 90 ti ve MC G IN LERMA LE R Ae 08 10 0 No ro 37 -3 ch 30 0- Lo am 76 20 ng be 50 13 er r/ 0 Op Ac ti ti lemra ve le r CL 51 08 0 No ON 07 -0 AZ 90 6- Lo EP 88 20 ng AM 22 13 er 1 0 Ac MG ti ve TA BL ET AP 00 08 0 No AP 40 -0 /H 60 6- Lo YD 36 20 ng RO 76 13 er CO 2 DO Ac NE ti ve 32 5M G/ 10 MG KE 50 08 0 No PP 47 -0 RA 40 6- Lo 59 20 ng 50 54 13 er 0 0 MG Ac ti TA ve BL ET PA 08 0 No TI -0 EN 6- Lo T' 20 ng S 13 er OW N Ac HO ti ME ve ME DS KE 50 08 1 No PP 47 -0 RA 40 5- Lo 59 20 ng 50 54 13 er 0 0 MG Ac ti TA ve BL ET PA 08 1 No TI -0 EN 5- Lo T' 20 ng S 13 er OW N Ac HO ti ME ve ME DS NI 00 08 1 No CO 06 -0 TI 75 5- Lo NE 12 20 ng 61 13 er 21 4 Ac MG ti /2 ve 4H R PA TC H AP 00 08 1 No AP 40 -0 /H 60 5- Lo YD 36 20 ng RO 76 13 er CO 2 DO Ac NE ti ve 32 5M G/ 10 MG SO 00 08 0 No DI 40 -0 UM 97 4- Lo 98 20 ng CH 30 13 er LO 9 RI Ac DE ti ve 0. 9% SO ALEXY TI ON ON 00 08 0 No DA 64 -0 NS 16 4- Lo ET 08 20 ng RO 02 13 er N 5 HC Ac L ti 4 ve MG /2 ML AL Sa 63 08 1 No li 80 -0 ne 70 4- Lo 10 20 ng Fl 07 13 er us 5 h Ac 10 ti ML ve Sy ri ng e Mo 00 08 0 No rp 40 -0 hi 91 4- Lo ne 25 20 ng 83 13 er 4M 0 G/ Ac Ml ti ve Sy ri ng e Ae 08 08 0 No ro 37 -0 ch 30 4- Lo am 76 20 ng be 50 13 er r/ 0 Op Ac ti ti lerma ve le r AP 00 08 1 No AP 40 -0 /H 60 4- Lo YD 36 20 ng RO 56 13 er CO 2 DO Ac NE ti ve 32 5 MG -5 MG VE 00 08 2 No NT 17 -0 OL 30 4- Lo IN 68 20 ng 22 13 er HF 4 A Ac 90 ti ve MC G IN LERMA LE R CL 51 08 2 No ON 07 -0 AZ 90 4- Lo EP 88 20 ng AM 22 13 er 1 0 Ac MG ti ve TA BL ET Ga 68 08 2 No ba 08 -0 pe 40 4- Lo nt 59 20 ng in 46 13 er 5 10 Ac 0M ti G ve Ca ps ul e TX 00 08 2 No OT 00 -0 ON 80 4- Lo IX 92 20 ng 35 13 er IV 5 Ac 40 ti ve MG AL ON 00 07 0 No DA 64 -1 NS 16 0- Lo ET 08 20 ng RO 02 13 er N 5 HC Ac L ti 4 ve MG /2 ML AL LO 00 07 0 No RA 64 -1 ZE 16 0- Lo PA 04 20 ng M 82 13 er 2 5 MG Ac /M ti L ve AL KE 50 07 0 No PP 47 -1 RA 40 0- Lo 00 20 ng 50 26 13 er 0 3 MG Ac /5 ti ve ML AL SO 00 07 0 No DI 40 -1 UM 97 0- Lo 98 20 ng CH 43 13 er LO 7 RI Ac DE ti ve 0. 9% SO ALEXY TI ON Vital Signs 12-04-2012 19:37 Name Value Interpretat Reference Comment ion Range Body 98.4 [degF] Temperature BP 61 mm[Hg] Diastolic BP Systolic 121 mm[Hg] Heart 100 /min Rate/Pulse O2% 95 % Respiratory 28 /min Rate 12-04-2012 19:09 Name Value Interpretat Reference Comment ion Range BP 64 mm[Hg] Diastolic BP Systolic 114 mm[Hg] Heart 109 /min Rate/Pulse O2% 94 % Respiratory 28 /min Rate 09-10-2012 11:04 Name Value Interpretat Reference Comment ion Range Body 98.1 [degF] Temperature BP 60 mm[Hg] Diastolic BP Systolic 100 mm[Hg] Heart 72 /min Rate/Pulse Respiratory 16 /min Rate 09-10-2012 03:55 Name Value Interpretat Reference Comment ion Range O2% 94 % 09-08-2012 20:05 Name Value Interpretat Reference Comment ion Range Height 157.48 cm Weight 37.450 kg Measured 09-08-2012 16:36 Name Value Interpretat Reference Comment ion Range Body 98.2 [degF] Temperature BP 77 mm[Hg] Diastolic BP Systolic 124 mm[Hg] Heart 110 /min Rate/Pulse O2% 96 % Respiratory 20 /min Rate Weight 0 [oz_av] Measured 08-20-2012 23:39 Name Value Interpretat Reference Comment ion Range Body 98.1 [degF] Temperature BP 75 mm[Hg] Diastolic BP Systolic 114 mm[Hg] Heart 72 /min Rate/Pulse O2% 98 % Respiratory 20 /min Rate 08-14-2012 16:37 Name Value Interpretat Reference Comment ion Range Body 98.3 [degF] Temperature BP 74 mm[Hg] Diastolic BP Systolic 122 mm[Hg] Heart 78 /min Rate/Pulse O2% 96 % Respiratory 20 /min Rate 08-14-2012 13:01 Name Value Interpretat Reference Comment ion Range BP 76 mm[Hg] Diastolic BP Systolic 141 mm[Hg] Heart 88 /min Rate/Pulse O2% 94 % Respiratory 16 /min Rate Results Labs Lab Lab Date Result Refere Interp Status Commen Order Detail nces retati t Range on Bas Metab 1999 Pnl SerPl (10-24-2016 12:40) Comment: Meter: [id number] 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 complet Gap3 016 mmol/L 0 ed SerPl-s 03:48 Cnc BUN/Cre -17-2 25.0 7.0-25. complet at 016 0 ed SerPl 03:48 GFR/BSA -17-2 > 150 >60 complet .pred 016 mL/min/ ed SerPl 03:48 1.73 MDRD-Ar VRat Calcium -17-2 8.3 8.7-10. complet 016 mg/dL 4 ed XXX-sCn 03:48 c CO2 -17-2 26.0 20.0-31 complet SerPl-s 016 mmol/L .0 ed Cnc 03:48 Chlorid 17-2 108 99-109 complet e 016 mmol/L ed SerPl-s 03:48 Cnc Potassi -17-2 4.0 3.5-5.5 complet um 016 mmol/L ed Bld-sCn 03:48 c Sodium -17-2 137 132-146 complet Bld-sCn 016 mmol/L ed c 03:48 Creat -17-2 0.40 0.60-1. complet Bld-mCn 016 mg/dL 30 ed c 03:48 BUN -17-2 10 9-23 complet Bld-mCn 016 mg/dL ed c 03:48 Glucose -17-2 79 70-100 complet 016 mg/dL ed Bld-mCn 03:48 c CBC W Diff pnl,unspecified Bld (12-23-2015 03:48) WBC 11-17-2 11.03 3.50-10 complet nRBC 016 10*3/mm .80 ed cor # 03:48 3 Bld Imm 11-17-2 0.03 0.00-0. complet Granulo 016 10*3/mm 03 ed cytes # 03:48 3 Bld Basophi 11-17-2 0.11 0.00-0. complet ls # 016 10*3/mm 20 ed Bld 03:48 3 Auto Eosinop 11-17-2 0.61 0.10-0. complet hil # 016 10*3/mm 30 ed Bld 03:48 3 Auto Monocyt 11-17-2 1.52 0.00-1. complet es # 016 10*3/mm 00 ed Bld 03:48 3 Auto Lymphoc 11-17-2 2.06 0.60-4. complet ytes # 016 10*3/mm 80 ed Bld 03:48 3 Auto Neutrop 11-17-2 6.70 1.50-8. complet hils # 016 10*3/mm 30 ed Bld 03:48 3 Auto Imm 11-17-2 0.3 % 0.0-0.6 complet Granulo 016 ed cytes 03:48 NFr Bld Basophi 11-17-2 1.0 % 0.0-1.0 complet ls NFr 016 ed Bld 03:48 Auto Eosinop 11-17-2 5.5 % 0.0-3.0 complet hil NFr 016 ed Bld 03:48 Auto Monocyt 11-17-2 13.8 % 0.0-12. complet es NFr 016 0 ed Bld 03:48 Auto Lymphoc 11-17-2 18.7 % 24.0-44 complet ytes 016 .0 ed NFr Bld 03:48 Auto Neutrop 11-17-2 60.7 % 41.0-71 complet hils 016 .0 ed NFr Bld 03:48 Auto Platele 11-17-2 282 150-450 complet t # Bld 016 10*3/mm ed Auto 03:48 3 PMV Bld 11-17-2 10.0 fL 6.0-12. complet Auto 016 0 ed 03:48 RDW RBC 11-17-2 52.6 fl 37.0-54 complet Auto 016 .0 ed 03:48 RDW RBC 11-17-2 14.6 % 11.3-14 complet 016 .5 ed Auto-Rt 03:48 o MCHC 11-17-2 31.4 32.0-36 complet RBC 016 g/dL .0 ed Auto-mC 03:48 nc MCH RBC 11-17-2 31.1 pg 27.0-31 complet Qn 016 .0 ed Auto 03:48 MCV RBC 11-17-2 98.9 fL 80.0-99 complet Auto 016 .0 ed 03:48 Hct VFr 36.3 % 34.5-44 complet Bld 016 .0 ed Auto 03:48 Hgb 12-22-2 11.4 11.5-15 complet Bld-mCn 016 g/dL .5 ed c 03:48 RBC # 12-22- 3.67 3.89-5. complet Bld 016 10*6/mm 14 ed Auto 03:48 3 Hgb A1c Bld (12-21-2015 13:23) Comment: The [place] [employer] recommends maintenance of Hemoglobin A1C at 7.0% or lower. Goals for Hemoglobin A1C reduction may need to be modified if hypoglycemia is a problem. Hgb A1c 4.90 % 4.80-5. complet MFr 016 60 ed Bld 13:23 BASIC METABOLIC PANEL (09-09-2012 03:45) Glucose 105 74-106 complet 013 mg/dL ed Bld-mCn 03:45 c BUN 59 7-18 complet Bld-mCn 013 mg/dL ed c 03:45 Creat 0.9 0.6-1.0 complet SerPl-m 013 mg/dL ed Cnc 03:45 ESTIMAT 42 50-200 complet ED 013 ML/MIN ed CREATIN 03:45 INE CLEARAN CE GFR 65 59- complet (ESTIMA 013 ML/MIN ed HALEIGH) 03:45 Sodium 141 136-145 complet SerPl-s 013 mmoL/L ed Cnc 03:45 Potassi 3.8 3.5-5.1 complet um 013 mmoL/L ed SerPl-s 03:45 Cnc Chlorid 104 98-107 complet e 013 mmoL/L ed SerPl-s 03:45 Cnc CO2 30 21.0-32 complet SerPl-s 013 mmoL/L .0 ed Cnc 03:45 Calcium 2 7.9 8.5-10. complet 013 mg/dL 1 ed SerPl-m 03:45 Cnc CBC with AUTO DIFF (09-09-2012 03:45) WBC # 05-2 13.9 4.8-10. complet Bld 013 K/MM3 8 ed Auto 03:45 RBC # 08-05-2 3.64 4.2-5.4 complet Bld 013 M/mm3 ed Auto 03:45 Hgb 08-05-2 11.4 12.2-16 complet Bld-mCn 013 g/dL .2 ed c 03:45 Hct Fr 08-05-2 34.2 % 37.0-47 complet Bld 013 .0 ed 03:45 MCV RBC 08-05-2 94.0 fl 82.2-97 complet 013 .8 ed 03:45 MCH RBC 08-05-2 31.4 pg 27-31.2 complet Qn 013 ed Auto 03:45 MEAN 08-05-2 33.4 31.8-35 complet CORPUSC 013 g/dl .4 ed ULAR 03:45 HGB CONC RDW RBC 08-05-2 15.2 % 11.5-17 complet Auto 013 .5 ed 03:45 Platele 08-05-2 248 142-424 complet t Bld 013 K/mm3 ed Ql 03:45 Manual MEAN 08-05-2 7.7 fl 7.4-10. complet PLATELE 013 4 ed T 03:45 VOLUME Granulo 08-05-2 66.2 % 37.0-80 complet cytes 013 .0 ed Fr Bld 03:45 Auto LYMPH % 08-05-2 25.3 % 10-50.0 complet 013 ed 03:45 Monocyt 08-05-2 8.2 % 1.7-9.3 complet es Fr 013 ed Bld 03:45 Auto Eosinop 08-05-2 0.1 % 0.1-12. complet hil Fr 013 0 ed Bld 03:45 Auto Basophi 08-05-2 0.2 % 0.1-2.0 complet ls Fr 013 ed Bld 03:45 Auto Granulo 08-05-2 9.2 1.8-7.8 complet cytes # 013 K/mm3 ed Bld 03:45 Auto Lymphoc 08-05-2 3.5 0.7-4.5 complet ytes Fr 013 K/mm3 ed Bld 03:45 Auto Monocyt 08-05-2 1.1 0.1-1.0 complet es # 013 K/mm3 ed Bld 03:45 Auto Eosinop 08-05-2 0.0 0.0-0.4 complet hil # 013 K/mm3 ed Bld 03:45 Auto Basophi 0.0 0-0.2 complet ls # 013 K/MM3 ed Bld 03:45 Auto OCCULT BLOOD (09-08-2012 18:45) Hemocul POSITIV NEG complet t sp1 013 E ed Stl Ql 18:45 COMPREHENSIVE METABOLIC PANEL (09-08-2012 17:05) Glucose 140 74-106 complet 013 mg/dL ed Bld-mCn 17:05 c BUN 104 7-18 High complet Bld-mCn 013 mg/dL alert ed c 17:05 Creat 1.2 0.6-1.0 complet SerPl-m 013 mg/dL ed Cnc 17:05 ESTIMAT 34 50-200 complet ED 013 ML/MIN ed CREATIN 17:05 INE CLEARAN CE GFR 47 59- complet (ESTIMA 013 ML/MIN ed HALEIGH) 17:05 Sodium 134 136-145 complet SerPl-s 013 mmoL/L ed Cnc 17:05 Potassi 4.1 3.5-5.1 complet um 013 mmoL/L ed SerPl-s 17:05 Cnc Chlorid 95 98-107 complet e 013 mmoL/L ed SerPl-s 17:05 Cnc CO2 32 21.0-32 complet SerPl-s 013 mmoL/L .0 ed Cnc 17:05 Calcium 8.3 8.5-10. complet 013 mg/dL 1 ed SerPl-m 17:05 Cnc Prot 6.7 6.4-8.2 complet SerPl-m 013 gm/dL ed Cnc 17:05 Albumin 3.4 3.4-5.0 complet 013 gm/dL ed SerPl-m 17:05 Cnc Globuli 3.3 1.3-3.2 complet n 013 gm/dL ed Ser-mCn 17:05 c Albumin 1.0 UNK 1.1-1.8 complet /Glob 013 ed SerPl-m 17:05 Rto Bilirub 08-04-2 0.5 0.2-1.0 complet 013 mg/dL ed SerPl-m 17:05 Cnc AST 28 U/L 15-37 complet SerPl-c 013 ed Cnc 17:05 ALT 48 U/L 30-65 complet SerPl-c 013 ed Cnc 17:05 ALP 98 U/L 50-136 complet SerPl-c 013 ed Cnc 17:05 Amylase SerPl-cCnc (09-08-2012 17:05) Amylase 42 U/L 25-115 complet 013 ed SerPl-c 17:05 Cnc LIPASE (09-08-2012 17:05) LIPASE 395 U/L 73-393 complet 013 ed 17:05 CBC with AUTO DIFF (09-08-2012 17:05) WBC # 04-2 16.4 4.8-10. complet Bld 013 K/MM3 8 ed Auto 17:05 RBC # 09-08-2 2.74 4.2-5.4 complet Bld 013 M/mm3 ed Auto 17:05 Hgb 09-08-2 8.8 12.2-16 complet Bld-mCn 013 g/dL .2 ed c 17:05 Hct Fr 26.7 % 37.0-47 complet Bld 013 .0 ed 17:05 MCV RBC 09-08-2 97.5 fl 82.2-97 complet 013 .8 ed 17:05 MCH RBC 09-08-2 32.2 pg 27-31.2 complet Qn 013 ed Auto 17:05 MEAN 33.0 31.8-35 complet CORPUSC 013 g/dl .4 ed ULAR 17:05 HGB CONC RDW RBC 09-08-2 15.6 % 11.5-17 complet Auto 013 .5 ed 17:05 Platele 370 142-424 complet t Bld 013 K/mm3 ed Ql 17:05 Manual MEAN 2 8.1 fl 7.4-10. complet PLATELE 013 4 ed T 17:05 VOLUME Granulo 09-08- 83.4 % 37.0-80 complet cytes 013 .0 ed Fr Bld 17:05 Auto LYMPH % 09-08-2 12.1 % 10-50.0 complet 013 ed 17:05 Monocyt 08-04-2 4.3 % 1.7-9.3 complet es Fr 013 ed Bld 17:05 Auto Eosinop 08-04-2 0.1 % 0.1-12. complet hil Fr 013 0 ed Bld 17:05 Auto Basophi 08-04-2 0.1 % 0.1-2.0 complet ls Fr 013 ed Bld 17:05 Auto Granulo 08-04-2 13.7 1.8-7.8 complet cytes # 013 K/mm3 ed Bld 17:05 Auto Lymphoc 08-04-2 2.0 0.7-4.5 complet ytes Fr 013 K/mm3 ed Bld 17:05 Auto Monocyt 08-04-2 0.7 0.1-1.0 complet es # 013 K/mm3 ed Bld 17:05 Auto Eosinop 08-04-2 0.0 0.0-0.4 complet hil # 013 K/mm3 ed Bld 17:05 Auto Basophi 08-04-2 0.0 0-0.2 complet ls # 013 K/MM3 ed Bld 17:05 Auto URINALYSIS/COMPLETE (08-14-2012 14:15) URINE 07-10-2 YELLOW YELLOW complet COLOR 013 ed 14:15 URINE 07-10-2 CLEAR CLEAR complet APPEARA 013 ed NCE 14:15 URINE 07-10-2 NEGATIV NEG complet GLUCOSE 013 E ed - 14:15 DIPSTIC K URINE 07-10-2 NEGATIV NEG complet BILIRUB 013 E ed IN - 14:15 DIPSTIC K URINE 07-10-2 NEGATIV NEG complet KETONE 013 E mg/dL ed 14:15 URINE 07-10-2 1.020 1.005-1 complet SPECIFI 013 UNK .030 ed C 14:15 GRAVITY URINE 07-10-2 NEGATIV NEG complet BLOOD 013 E ed 14:15 URINE 07-10-2 7.0 UNK 5.0-8.5 complet PH 013 ed 14:15 URINE 07-10-2 NEGATIV NEG complet PROTEIN 013 E mg/dL ed - 14:15 DIPSTIC K URINE 07-10-2 0.2 NEG complet UROBILI 013 E.U./dL ed NOGEN - 14:15 DIPSTIC K URINE 07-10-2 NEGATIV NEG complet NITRATE 013 E ed - 14:15 DIPSTIC K URINE TRACE NEG complet LEUK 013 ed ESTERAS 14:15 E URINE OCC 0 complet RBC 013 rbc/hpf ed 14:15 URINE 3-5 O complet WBC 013 wbc/hpf ed 14:15 URINE 3-5 0-5 complet SQUAMOU 013 #/hpf ed S CELLS 14:15 COMPREHENSIVE METABOLIC PANEL (08-14-2012 12:10) Glucose 99 74-106 complet 013 mg/dL ed Bld-mCn 12:10 c BUN 6 mg/dL 7-18 complet Bld-mCn 013 ed c 12:10 Creat 0.8 0.6-1.0 complet SerPl-m 013 mg/dL ed Cnc 12:10 ESTIMAT 54 50-200 complet ED 013 ML/MIN ed CREATIN 12:10 INE CLEARAN CE GFR 74 59- complet (ESTIMA 013 ML/MIN ed HALEIGH) 12:10 Sodium 136 136-145 complet SerPl-s 013 mmoL/L ed Cnc 12:10 Potassi 3.7 3.5-5.1 complet um 013 mmoL/L ed SerPl-s 12:10 Cnc Chlorid 95 98-107 complet e 013 mmoL/L ed SerPl-s 12:10 Cnc CO2 30 21.0-32 complet SerPl-s 013 mmoL/L .0 ed Cnc 12:10 Calcium 9.3 8.5-10. complet 013 mg/dL 1 ed SerPl-m 12:10 Cnc Prot 9.0 6.4-8.2 complet SerPl-m 013 gm/dL ed Cnc 12:10 Albumin 4.6 3.4-5.0 complet 013 gm/dL ed SerPl-m 12:10 Cnc Globuli 4.4 1.3-3.2 complet n 013 gm/dL ed Ser-mCn 12:10 c Albumin 1.0 UNK 1.1-1.8 complet /Glob 013 ed SerPl-m 12:10 Rto Bilirub 2 0.8 0.2-1.0 complet 013 mg/dL ed SerPl-m 12:10 Cnc AST 40 U/L 15-37 complet SerPl-c 013 ed Cnc 12:10 ALT 38 U/L 30-65 complet SerPl-c 013 ed Cnc 12:10 ALP 140 U/L 50-136 complet SerPl-c 013 ed Cnc 12:10 CBC with AUTO DIFF (08-14-2012 12:10) WBC # 10-2 9.8 4.8-10. complet Bld 013 K/MM3 8 ed Auto 12:10 RBC # 10-2 5.50 4.2-5.4 complet Bld 013 M/mm3 ed Auto 12:10 Hgb 08-14-2 17.5 12.2-16 complet Bld-mCn 013 g/dL .2 ed c 12:10 Hct Fr 55.7 % 37.0-47 complet Bld 013 .0 ed 12:10 MCV RBC 08-14- 101.2 82.2-97 complet 013 fl .8 ed 12:10 MCH RBC 08-14- 31.8 pg 27-31.2 complet Qn 013 ed Auto 12:10 MEAN 08-14- 31.4 31.8-35 complet CORPUSC 013 g/dl .4 ed ULAR 12:10 HGB CONC RDW RBC 08-14-2 14.4 % 11.5-17 complet Auto 013 .5 ed 12:10 Platele 08-14-2 305 142-424 complet t Bld 013 K/mm3 ed Ql 12:10 Manual MEAN 08-14-2 8.6 fl 7.4-10. complet PLATELE 013 4 ed T 12:10 VOLUME Granulo 08-14-2 67.7 % 37.0-80 complet cytes 013 .0 ed Fr Bld 12:10 Auto LYMPH % 10-2 25.0 % 10-50.0 complet 013 ed 12:10 Monocyt 10-2 6.0 % 1.7-9.3 complet es Fr 013 ed Bld 12:10 Auto Eosinop 08-14-2 0.3 % 0.1-12. complet hil Fr 013 0 ed Bld 12:10 Auto Basophi 08-14-2 1.0 % 0.1-2.0 complet ls Fr 013 ed Bld 12:10 Auto Granulo 08-14-2 6.6 1.8-7.8 complet cytes # 013 K/mm3 ed Bld 12:10 Auto Lymphoc 08-14-2 2.4 0.7-4.5 complet ytes Fr 013 K/mm3 ed Bld 12:10 Auto Monocyt 10-2 0.6 0.1-1.0 complet es # 013 K/mm3 ed Bld 12:10 Auto Eosinop 08-14-2 0.0 0.0-0.4 complet hil # 013 K/mm3 ed Bld 12:10 Auto Basophi 08-14-2 0.1 0-0.2 complet ls # 013 K/MM3 ed Bld 12:10 Auto Procedures Procedure DOS Code Location Performer Comment APPLICATI 93.54 Thomas Arteaga III, MD Encounters Encounter Start End Date Code Location Performer Type Date Emergency TANO Woodall MD (ER) 3 18:36 3 19:37 [facility] Inpatient LUIS ANGEL Urena ([place]) 3 17:21 3 11:05 [facility] [place] [facility] TANO Woodall MD (ER) 3 23:30 3 23:40 [facility] Emergency TANO Arteaga (ER) 3 11:57 3 16:36 [facility] Thomas Hatfield
--- OUTSIDE RECORDS SUMMARY | 2016-11-21 18:56 | External Medical Summary Rpt | CCD ---
Author Author , KATHY CHAVEZ Address Unknown Phone [email or web address] Care Team Providers Care Nurse Emergency Room Name Role Phone Karolina HERNANDEZ, Unavailable Unavailable Karolina Daugherty MD, Unavailable Unavailable Delisa Urena MD, Unavailable Unavailable Lian Arteaga Unavailable Unavailable KATHY PALMA, Thomas Arteaga III, MD Purpose Continuity of Care Document - 08-14-2012 through 2016 Problems Code Diagnosis DOS Provider Status [id number] Asthma [facility] 276.8 Hypokalemia [facility] [id number] Delirium [facility] [id number] Active [facility] 724.2 Chronic low [place] back pain [facility] [id number] Chronic [facility] C34.90 MALIGNANT NEOPLASM OF UNSP PART OF [...] 3( ve 2. 5) MG /3 ML MN 00 10 0 No ED 05 -3 [...] Ac ti ti lerma ve le r CL 51 08 0 [...] Ac 90 ti ve MC G IN ELRMA LE R CL 51 08 2 No ON 07 -0 AZ 90 4- Lo EP 88 20 ng AM 22 13 er 1 0 Ac MG ti ve TA BL ET Ga 68 08 2 No ba 08 -0 pe 40 4- Lo nt 59 20 ng in 46 13 er 5 10 Ac 0M ti G ve Ca ps ul e MN 00 08 2 No OT 00 -0 [...] 1999 Pnl SerPl (10-24-2016 12:40) Comment: Meter: [id number] Home Health Care Physician: [id number] Cleo Ceja Glucose 85 70-130 complet BldC [...] Hgb A1c Bld (12-21-2015 13:23) Comment: The [place] [employer] recommends maintenance of Hemoglobin A1C [...] Woodall MD (ER) 3 18:36 3 19:37 [facility] Inpatient LUIS ANGEL Urena ([place]) 3 17:21 3 11:05 [facility] [place] [facility] TANO Woodall MD (ER) 3 23:30 3 23:40 [facility] Emergency TANO Arteaga (ER) 3 11:57 3 16:36 [facility] Thomas Hatfield
--- OUTSIDE RECORDS SUMMARY | 2016-11-21 18:56 | External Medical Summary Rpt | CCD ---
Demographics Preferred Language Yoruba Marital Status Unknown Pentec[employer]al Affiliation Unknown Race Unknown Ethnic Group Unknown Author Author , KATHY CHAVEZ Address Unknown Phone Immunization No patient found.
--- OUTSIDE RECORDS SUMMARY | 2016-11-21 18:56 | External Medical Summary Rpt | CCD ---
Demographics Preferred Language Mongolian Marital Status Unknown [employer] Affiliation Unknown Race Unknown Ethnic Group Unknown Author Author , KATHY CHAVEZ Address Unknown Phone Immunization No patient found.
--- NOTE | 2016-11-21 18:59 | Emergency Room Report ---
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 N Clinical Suspician of Infection? N Mental Status: 1 - Regular (Normal Baseline) Sepsis Risk:Low Sepsis Risk Have you (or family members/close friends) recently traveled outside the [place]? N If Yes, where/when: Have you had exposure to infectious disease within the past month? TB? Other? Specify: Comment The patient is brought in by ambulance under stroke protocol, she was taken to CT scan first and then brought to the emergency department. She was found unresponsive tonight by her per EMS report. Patient is unable to give any history. ALLERGIES Coded Allergies: cephalexin (From KEFLEX) (Mild, 11/21/16) Home Medications Active Scripts Guaifenesin (Mucinex) 1,200 MG PO BID #20 TAB Prov: 03/21/16 Reported Medications Gabapentin 300 MG PO BID #90 Ferrous Sulfate (Ferrous Sulfate 325MG) 325 MG PO BID OMEPRAZOLE MAGNESIUM (Omeprazole Magnesium) 20 MG PO DAILY Atorvastatin Calcium (Atorvastatin) 20 MG PO DAILY ALBUTEROL/IPRATROPIUM (Combivent Respimat Inhal [place]) 1 PUFF IH BID #4 POTASSIUM CHL (Potassium Chloride) 20 MEQ PO DAILY BUDESONIDE/FORMOTEROL FUMARATE (Symbicort 160-4.5 Mcg Inhaler) 1 PUFF IH BID Ipratropium [place]coll (Ipratropium 0.5MG Neb Soln) 0.5 MG INH PRN PRN COPD Biotin 1 MG PO DAILY (Josafat Connelly MD) History Medical History General CAD? No Angina: No DC: No Hypertension? No Hyperlipidemia? No CHF? No DVT? No PE? No COPD? Yes Asthma? Yes Anemia? Yes GERD? No Gastric ulcers? No GI Bleed? No Hernia? No Thyroid Problems? No Hypothyroidism? No CVA? Yes Seizures? Yes Diabetes? No Insulin Dependent: No Insulin Pump: No Home FSBS? No Renal Insuffiency? No End Stage Renal Disease? No UTI? Yes Stones? No BPH? No GB Disease: No Nephritic Syndrome? No Asplenia? No Hepatitis? No Sickle Cell Disease? No Arthritis? No Migraines? No Cataracts? No Glaucoma? No MRSA? No HIV? No TB? No Anxiety? No Depression? No Cancer? Yes Site: RIGHT LUNG More? No Immunization Hx DT/Tetanus Unknown Flu 2015-FSN Pneumonia Received In Past Surgical Hx Previous Surgery?Y HYSTERECTOMY LUNG BIOPSY Family History Family Hx Diabetes No CAD No Hypertension No Hyperlipidemia No Cancer No TB No Social History Smoking Hx Packs/day 1 1/2 - 2 Packs Alcohol Alcohol: No (Josafat Connelly MD) Review of Systems All Other Systems Reviewed and Negative (unable to obtain, unresponsive) (Josafat Connelly MD) Physical Exam Vital Signs Vital Signs Date Time Temp Pulse Resp B/P Pulse O2 O2 Flow FiO2 Ox Delivery Rate 11/22 2011 81 20 136/72 100 100 11/21 2010 80 20 113/74 100 11/21 1920 89 20 122/65 100 100 11/21 1847 97.8 101 18 145/80 99 General Appearance severe distress, unresponsive to pain. spontaneous respirations. Eye Exam Comment Pupils 3 mm bilaterally, nonreactive Ear, Nose, Throat hearing grossly normal, normal ENT inspection Neck normal inspection Respiratory Status Yes: trachea midline, chest symmetrical. No: respiratory distress. Lung Sounds bilateral: normal breath sounds, lungs clear. Cardiovascular normal exam, regular rate/rhythm, no peripheral edema, no gallop, no JVD, no murmur, no rub, normal peripheral pulses Peripheral Pulses Pulses normal Yes Gastrointestinal normal bowel sounds, normal exam, non tender, soft, no organomegaly Extremities normal inspection Neurologic unresponsive to pain Mental status altered mental status Skin intact, normal color, warm/dry (Josafat Connelly MD) Medical Decision Making LABS/Meds/Orders Pt receiving controlled substance in ED? Yes Zeb was queried for this patient? No Reason not queried - emergent pt cond=no time Results/Orders Laboratory Tests 11/21/162009: ABG pH 7.26 L, ABG pCO2 (Temp Corrct 60.5 H, ABG pO2 (Temp Correct 72.3 L, ABG HCO3 26.3 H, ABG Total CO2 28.2 H, ABG O2 Sat (Calculated) 95.1, ABG Base Excess -0.8, Flynn Test Y, Vent Rate 16, Tidal Volume 400, POC PEEP 5, Pressure Support 10, Blood Gas Comments L/R 11/21/161900: Peripheral Blood Smear Pending 11/21/161829: Opiates Screen NEGATIVE, Urine Methadone Screen NEGATIVE, Barbiturates NEGATIVE, Phencyclidine Screen NEGATIVE, Amphetamines Screen NEGATIVE, Benzodiazepines Screen POSITIVE H, Cocaine Screen NEGATIVE, Marijuana (THC) Screen NEGATIVE 11/21/161829: Sodium 147 H, Potassium 4.8, Chloride 107, Carbon Dioxide 36 H, BUN 14, Creatinine 0.7, Estimated GFR (MDRD) 85, Glucose 98, Calcium 8.8, Total Bilirubin 0.4, AST 26, ALT 22, Alkaline Phosphatase 138 H, Troponin I < 0.02, Total Protein 7.2, Albumin 3.4, Globulin 3.8 H, Albumin/Globulin Ratio 0.9 L, WBC 31.8 *H, RBC 5.16, Hgb 16.4 H, Hct 51.8 H, MCV 100.4 H, RDW 14.0, Plt Count 190, MPV 7.8, Gran % 90.9 H, Gran # 28.9 H, Total Counted 100, Lymphocytes % 1.9 L, Monocytes % 6.2, Eosinophils % 0.0 L, Basophils % 0.9, Neutrophils 78 H, Band Neutrophils 8, Lymphocytes (Manual) 5 L, Lymphocytes # 0.6 L, Monocytes (Manual) 6, Monocytes # 2.0 H, Eosinophils # 0.0, Basophils # 0.3 H, Metamyelocytes 3 H, Platelet Estimate NORMAL, PUBS MCHC 31.6 L, MCH 31.7 H, Salicylates 4.8, Acetaminophen 0 L, Alcohols 0, Urine Color YELLOW, Urine Appearance CLEAR, Urine pH 6.0, Ur Specific [place] 1.020, Urine Protein NEGATIVE, Urine Ketones NEGATIVE, Urine Blood TRACE-INTACT, Urine Nitrate NEGATIVE, Urine Bilirubin NEGATIVE, Urine Urobilinogen 0.2, Ur Leukocyte Esterase NEGATIVE, Urine RBC OCC, Urine WBC 3-5, Ur Squamous Epith Cells NONE, Urine Bacteria 2+, Hyaline Casts 5-10, Coarse Granular Casts OCC, Urine Glucose NEGATIVE Current Medication Orders Sig/Cirilo Start time Last Medication Dose Route Stop Time Status Admin Propofol 100 ML .STK-MED ONE 11/21 1932 DC IV Clindamycin Phosphate 0 .STK-MED ONE 11/21 1929 DC .ROUTE Propofol 100 ML ONCE ONE 11/21 1929 AC 11/21 IV 11/24 1417 1958 Sodium Chloride 100 ML .STK-MED ONE 11/21 1929 DC IV Ertapenem 0 .STK-MED ONE 11/21 1928 DCr .ROUTE Levofloxacin/Dextrose 150 ML .STK-MED ONE 11/21 1928 DC IV Sodium Chloride 100 ML .STK-MED ONE 11/21 1928 DC IV Clindamycin Phosphate 600 MG ONCE ONE 11/21 1914 DC 11/21 Sodium Chloride 100 ML IV 11/21 Ertapenem 1 GM ONCE ONE 11/21 1914 DCr 11/21 Sodium Chloride 50 ML IV 11/21 Levofloxacin/Dextrose 150 ML ONCE ONE 11/21 1914 DCr 11/21 IV 11/21 Miscellaneous 1 EACH CONSULT PHARMACY 11/21 1914 AC Information * 11/22 07 Naloxone HCl 2 MG ONCE ONE 11/21 1914 DC IV 11/22 1915 Naloxone HCl 2 MG ONCE ONE 11/21 1914 DC IV 11/22 1915 Sodium Chloride 1,000 ML .STK-MED ONE 11/21 1837 DC IV Naloxone HCl 0 .STK-MED ONE 11/21 1836 DC .ROUTE Sodium Chloride 10 ML PRN PRN 11/21 1829 AC IV 11/22 183 Orders Procedure Date/time Status DIET-NOTHING BY MOUTH 11/22 B Active URINARY CATHETER INSERT 11/21 190 Active ARTERIAL BLOOD GAS REQUEST 11/21 1854 Active URINALYSIS/COMPLETE 11/21 185 Complete SALICYLATE 11/21 185 Complete DRUG ABUSE SCREEN (TRIAGE) 11/21 185 Complete ALCOHOL 11/21 185 Complete Acetaminophen 11/21 1853 Complete CULTURE, SPUTUM 11/21 1852 Active CULTURE, BLOOD 11/21 1852 Active ELECTROCARDIOGRAM REQUEST 11/21 183 Active CHEST-PORTABLE 11/21 1830 Active IV SALINE LOCK 11/21 183 Active TROPONIN I 11/21 1830 Complete CBC WITH AUTO DIFF 11/21 1830 Complete CHEM 12 PROFILE 11/[address] HEAD REQ 11/21 1829 Complete CULTURE, URINE 11/21 1829 Active DIFFERENTIAL-WBC 11/[address] HEAD W/O CONTRAST 11/21 1828 Active CM/EKG CM/EKG Comments EKG interpreted by Josafat Connelly MD: Rhythm: sinus tachycardia Rate: 101 [place]: normal Ectopy: none Conduction: normal ST Segment Changes: none T Wave Changes: none Q Waves: none No evidence of acute ischemia or injury XRAY/CT/US XRAY/CT/US XRAY chest Comment X-ray interpreted by Josafat Connelly M.D.: ET tube in good position. Chronic scar RIGHT mid lung. diffuse airspace disease LEFT lung and probably medial RIGHT base. CT head Comment CT scan interpreted by [facility] radiologist. Faxed report received and reviewed: Old LEFT parietal infarct, no acute process. Small amount of fluid in the RIGHT frontal sinus. Progress - 7:25 PM: Case discussed with Dr. Woodall, primary care provider. He requested the patient be transferred to a higher level of care. I discussed this with the patient's and he is in agreement. Call [facility] to [facility]. 7:54 PM: Case discussed with Dr. Sexton at [facility]. They do not have any Intensive Care Unit beds but will place her on the waiting list. (Josafat Connelly MD) Procedures Intubation Progress Endotracheal Intubation Performed by: JOSAFAT CONNELLY Authorized by: JOSAFAT CONNELLY Consent: The procedure was performed in an emergent situation. Patient identity confirmed: arm band Indications: Airway protection, respiratory failure Intubation method: direct Laryngoscope size: Almaraz 3 Tube size: 7.5 mm Tube type: cuffed Number of attempts: 1 Cords visualized: yes Post-procedure assessment: chest rise and CO2 detector, chest x-ray Breath sounds: equal bilaterally in the apices and absent over the epigastrium Cuff inflated: yes ETT to corner of mouth: 22 cm Tube secured with: ETT lyles Large amount of kohli colored thick liquid coming out of tube after intubation, suctioned (Josafat Connelly MD) Departure Departure ED Critical Care Critical Care Yes Time spent 30-74 min Vital system(s) involved: Respiratory Failure I was present at bedside for Coordinating pt's care, Interpreting EKGs/Strips , During my initial exam, Reviewing lab results, Reviewing old records, Discussing pt condition, For re-examinations, Ventilator management, Examining radiographs (Josafat Connelly MD) Departure Time of Disposition 2047 Disposition DC/XFER from ER to S... Hosp Clinical Impression Primary Impression: Pneumonia Qualifiers: Pneumonia type: due to unspecified organism Laterality: bilateral Lung location: unspecified part of lung Qualified Code: J18.9 - Pneumonia, unspecified organism Secondary Impressions: Acute respiratory failure with hypoxia Altered mental status Qualifiers: Altered mental status type: unspecified Qualified Code: R41.82 - Altered mental status, unspecified Condition STABLE Additional Instructions discussed with [facility] - dr disla Discharge Counseling Counseled pt/family regarding diagnosis, test results ED Critical Care Critical Care Yes Time spent 30-74 min Vital system(s) involved: Respiratory Failure I was present at bedside for Coordinating pt's care, Interpreting EKGs/Strips , During my initial exam, Reviewing lab results, Reviewing old records, Discussing pt condition, For re-examinations, Ventilator management, Examining radiographs If Critical Care minutes are documented, the time involved in the performance of seperately reportable procedures was not counted toward critical care time documented. I directly delivered medical care to this critically ill and/or injured patient. Timely evaluation and treatment was necessary to address the significant organ system(s) dysfunction present in this patient. (Mary Lou Woodall MD) at 2003 at 2049
[2016-11-21 19:00] LABS: URINE BILIRUBIN - DIPSTICK NEGATIVE (NEG); URINE BLOOD TRACE-INTACT (NEG)
[2016-11-21 19:05] LABS: NEUTROPHILS 78 % (42-76)
[2016-11-21 19:24] LABS: AMPHETAMINES/METAMPHETAMINES NEGATIVE ng/mL (<1000)
[2016-11-21 20:11] LABS: ARTERIAL PO2 72.3 MMHG (80-100)
[2016-11-21 20:12] LABS: ALLEN'S TEST Y; ARTERIAL ABE -0.8 MMOL/L (-2.4-+2.3); ARTERIAL TCO2 28.2 MMOL/L (23-27); OXYGEN 95; PRESSURE SUPPORT 10; VENT RATE 16
--- NOTE | 2016-11-21 21:33 | RADIOLOGY REPORT PS360 ---
CT HEAD W/O CONTRAST HISTORY: Facial weakness, left-sided facial weakness, unresponsive STROKE ALERT ORDERING PHYSICIAN: Josafat Aguilar MD PATIENT AGE: 61 years COMPARISON: 10/18/2016 TECHNIQUE: Axial images obtained without contrast. Brain and bone windows reviewed. FINDINGS: No midline shift, mass effect, intracranial hemorrhage, hydrocephalus, or extra-axial fluid collection is evident. There is generalized motion artifact. There is an old small infarction of the left parietal lobe. The calvarium has an unremarkable appearance. No mastoid effusion. Air-fluid levels present in the right frontal sinus.. IMPRESSION: 1. Old left parietal infarction. No acute intracranial findings. 2. Air-fluid level right frontal sinus. 3. There is no evidence of intracranial hemorrhage, focal mass, or acute territorial infarction. A negative CT does not exclude an acute CVA. A follow-up head CT or MRI is recommended if neurological symptoms persist .
[2016-11-21 21:50] VITALS: BP 126/60
--- NOTE | 2016-11-22 05:50 | RADIOLOGY REPORT PS360 ---
CHEST-PORTABLE HISTORY: Respiratory failure, endotracheal tube placement, unresponsive UNRESPONSIVE ORDERING PHYSICIAN: Josafat Aguilar MD PATIENT AGE: 61 years COMPARISON: 10/12/2016 FINDINGS: Endotracheal tube has been placed in good position. The tip is 4.5 cm above the sincere. Chronic changes with scarring noted in the right lung with COPD. There is mild opacification of the left perihilar region and left lower lobe and right lung base medially consistent with pneumonia. Normal heart size. IMPRESSION: 1. Good placement of endotracheal tube. 2. Bilateral pneumonia with chronic pulmonary changes and COPD
== END 2016-11-21 21:52 | disposition short-term general hospital (02) ==
LOC: ER 18:28
PROVIDERS: Emergency Medicine
PROC: 5A1935Z Respiratory Ventilation, Less than 24 Consecutive Hours (ICD-10-PCS; principal; 2016-11-21)
PROC: 0BH17EZ Insertion of Endotracheal Airway into Trachea, Via Natural or Artificial Opening (ICD-10-PCS; 2016-11-21)
DX: J45.909 Unspecified asthma, uncomplicated (principal); Z85.118 Personal history of other malignant neoplasm of bronchus and lung; J96.01 Acute respiratory failure with hypoxia; J18.9 Pneumonia, unspecified organism
CPT/HCPCS: J1335; J2704

== ENCOUNTER → 2016-12-12 | Outpatient (CLI) | payer MEDICARE, MEDICAID ==
--- NOTE | 2016-12-13 11:28 | RADIOLOGY REPORT PS360 ---
CARDIOLITE SPECT MYOCARDIAL PERFUSION SCAN, REST AND STRESS: EXERCISE STRESS [facility] REVIEW QGS EF AND WALL MOTION EVALUATION: QPS - PERFUSION EVALUATION HISTORY: Chest pain, SOB, Abnormal EKG, Tobacco use, Syncope, Fatigue DOSE: 10.06 mCi technetium 99m mibi intravenously at rest followed by 30.6 mCi technetium 99m mibi following the intravenous ministration of 0.4 mg of Lexiscan. Resting blood pressure is 148/75. Stress blood pressure 136/71. FINDINGS: Ejection fraction is calculated to be 62%. Gated images calculated ejection fraction of 62% with normal wall motion IMPRESSION: Reversible anterior apical ischemia. Normal ejection fraction normal wall motion. High risk abnormal stress test
--- NOTE | 2016-12-13 11:28 | RADIOLOGY REPORT PS360 ---
CARDIOLITE SPECT MYOCARDIAL PERFUSION SCAN, REST AND STRESS: EXERCISE STRESS [facility] REVIEW QGS EF AND WALL MOTION EVALUATION: QPS - PERFUSION EVALUATION HISTORY: Chest pain, SOB, Abnormal EKG, Tobacco use, Syncope, Fatigue DOSE: 10.06 mCi technetium 99m mibi intravenously at rest followed by 30.6 mCi technetium 99m mibi following the intravenous ministration of 0.4 mg of Lexiscan. Resting blood pressure is 148/75. Stress blood pressure 136/71. FINDINGS: Ejection fraction is calculated to be 62%. Gated images calculated ejection fraction of 62% with normal wall motion IMPRESSION: Reversible anterior apical ischemia. Normal ejection fraction normal wall motion. High risk abnormal stress test
== END ==
LOC: RAD 12:00
DX: I20.9 Angina pectoris, unspecified (principal); R06.02 Shortness of breath; R55 Syncope and collapse; J44.9 Chronic obstructive pulmonary disease, unspecified; R94.31 Abnormal electrocardiogram [ECG] [EKG]
CPT/HCPCS: A9502; J2785

== ENCOUNTER → 2016-12-18 | Outpatient (CLI) | payer MEDICARE, MEDICAID ==
--- NOTE | 2016-12-18 20:55 | RADIOLOGY REPORT PS360 ---
PROCEDURE: 2-D M-mode and color Doppler study INDICATIONS FOR THE TEST: Chest pain COPD+ Heart Murmur Tobacco Smoking Palpitations Fatigue Syncope Edema Hypertension Diabetes Mellitus Rheumatic Fever SOB+BARRIENTOS Obesity Hyperlipidemia Family History HD Additional History LUNG CA PATIENT INFORMATION HEIGHT:62 WEIGHT:120 GENDER: Female B/P:128/72 2-D/M-MODE INTERPRETATION: 2-D MEASUREMENTS OBSERVED VALUES IN CMS Right Ventricular Dimension (RVDd) 2.1 Interventricular Septum (Thickness)(IVsd) 1.2 Left Ventricular Internal Dimensions(LVIDd) 4.0 Left Ventricular Posterior Wall (Thickness)(LVPWd 0.7 Aortic Root 2.9 Aortic Cusp Separation 1.8 Left Atrial Dimensions (LAD) 3.5 2D 1. Left atrium is normal size, left ventricle is normal size, there is no concentric left ventricular hypertrophy, visually estimated ejection fraction 55% with no obvious regional wall motion abnormality. 2. The right atrium and right ventricle are normal size and contractility. 3. The aortic valve is minimally thickened and fibrosed. 4. The mitral valve has mitral calcification, leaflets are minimally thickened. 5. The tricuspid valve is grossly normal. 6. The pulmonic valve is poorly visualized. 7. No significant pericardial effusion noted. DOPPLER INTERROGATION: Doppler interrogation of the aortic, mitral and tricuspid valvular presence of moderate mitral and mild tricuspid regurgitation, tricuspid and jet velocity insufficient for calculation of the right ventricular systolic pressure, grade 1 diastolic dysfunction seen with tissue Doppler evidence of raised left atrial pressure. CONCLUSION: 1. Normal left ventricular size, preserved left ventricular systolic function, visually estimated ejection fraction 55% with no obvious regional wall motion abnormality, grade 1 diastolic dysfunction seen with tissue Doppler evidence of raised left atrial pressure. 2. Moderate mitral and mild tricuspid regurgitation. 3. No significant pericardial effusion noted.
== END ==
LOC: RT 10:30
DX: R94.39 Abnormal result of other cardiovascular function study (principal); I10 Essential (primary) hypertension; E78.5 Hyperlipidemia, unspecified; J44.9 Chronic obstructive pulmonary disease, unspecified; R06.02 Shortness of breath

== ENCOUNTER → 2016-12-19 | Day surgery (SDC) | payer MEDICARE, MEDICAID ==
[2016-12-19 08:00] LABS: HEMOGLOBIN 15.1 g/dL (12.2-16.2); LYMPH # 2.3 K/mm3 (0.7-4.5); LYMPH % 32.3 % (10-50.0)
[2016-12-19 08:15] LABS: BUN 9 mg/dL (7-18)
[2016-12-19 08:16] LABS: GFR (ESTIMATED) 126 ML/MIN (59-)
--- NOTE | 2016-12-19 11:12 | RADIOLOGY REPORT PS360 ---
CARDIAC CATHETERIZATION DATE OF CATHETERIZATION:12/19/2016 10:17 AM PROCEDURES: 1. Left heart catheterization 2. Left ventriculogram 3. Selective coronary angiogram INDICATION FOR TEST: 1. Abnormal Myoview 2. Risk factors for coronary artery disease Informed consent was obtained prior to the procedure. COMPLICATIONS: None ESTIMATED BLOOD LOSS: Less than 10 ml. TECHNIQUE: One percent lidocaine used to anesthetize the right anterior aspect of the wrist. The right radial artery was accessed via the Seldinger technique. A 6 [place] sheath was placed in the right radial artery. 2.5 mg of verapamil, 800 mcg of nitroglycerin and 5000 U Heparin were given through the arterial sheath. The trap catheter was also used to perform left heart catheterization and left ventriculography. At the end of the procedure the patient was transferred to the post-op holding area in stable condition for arterial sheath removal. ANGIOGRAPHIC RESULTS: 1. The left main artery normal 2. The left anterior descending artery normal 3. The circumflex artery normal 4. The right coronary artery dominant normal 5. The CHAMBERS ventriculogram reveals normal 65% 6. The left ventricular end-diastolic pressure 10 mmHg IMPRESSION: 1. Normal coronary arteries. 2. Normal ejection fraction 3. Normal left ventricular end-diastolic pressure PLAN: 1. Evaluation of noncardiac chest pain 2. Risk factor modification
[2016-12-19 14:34] VITALS: BP 116/53
== END ==
LOC: CATHLAB 07:25
PROVIDERS: Internal Medicine
PROC: B2111ZZ Fluoroscopy of Multiple Coronary Arteries using Low Osmolar Contrast (ICD-10-PCS; 2016-12-19)
PROC: B2151ZZ Fluoroscopy of Left Heart using Low Osmolar Contrast (ICD-10-PCS; 2016-12-19)
PROC: 4A023N7 Measurement of Cardiac Sampling and Pressure, Left Heart, Percutaneous Approach (ICD-10-PCS; principal; 2016-12-19 11:00)
DX: R94.39 Abnormal result of other cardiovascular function study (principal); I10 Essential (primary) hypertension; J44.9 Chronic obstructive pulmonary disease, unspecified; J43.9 Emphysema, unspecified; I65.29 Occlusion and stenosis of unspecified carotid artery
CPT/HCPCS: C1725; C1769; J1644; Q9967